=== PATIENT | female | born 1970 | race Caucasian/White ===

== ENCOUNTER 2018-09-12 13:47 | Emergency (ER) | payer MEDICAID ==
[~2018-09-12] VITALS: Ht 154.9 cm; Wt 70.5 kg
[2018-09-12] MEDS ORDERED: LISI-661 PO (13:56)
[2018-09-12 15:12] VITALS: BP 131/84
== END 2018-09-12 15:28 | disposition home or self-care (01) ==
LOC: EMS 13:50
DX: M20.012 Mallet finger of left finger(s) (principal); I10 Essential (primary) hypertension; W23.0XXA Caught, crushed, jammed, or pinched between moving objects, initial encounter; Y93.89 Activity, other specified; Y92.89 Other specified places as the place of occurrence of the external cause; Y99.8 Other external cause status